=== PATIENT | male | born 1970 | race Two or more races ===

== ENCOUNTER 2021-07-23 16:08 | Emergency (ER) | payer OTHER ==
[~2021-07-23] VITALS: Ht 175.3 cm; Wt 87.1 kg
[2021-07-23] MEDS ORDERED: NORFLEX100MG PO (18:39)
[2021-07-23] MEDS ORDERED: KETO10TA2 PO (18:39)
== END 2021-07-23 19:44 | disposition home or self-care (01) ==
LOC: ER 16:08
DX: M54.50 Low back pain, unspecified (principal); M62.830 Muscle spasm of back

== ENCOUNTER 2021-09-17 21:06 | Emergency (ER) | payer OTHER ==
[~2021-09-17] VITALS: Ht 177.8 cm; Wt 88.9 kg
[~2021-09-17 21:06] MED LIST: KETO10TA2 PO; NORFLEX100MG PO
[2021-09-17] MEDS ORDERED: AVAPRO75 MG (21:17)
== END 2021-09-17 23:25 | disposition home or self-care (01) ==
LOC: ER 21:06
DX: G43.809 Other migraine, not intractable, without status migrainosus (principal)

== ENCOUNTER 2022-07-21 08:32 | Emergency (ER) | payer OTHER ==
[~2022-07-21] VITALS: Ht 175.3 cm; Wt 92.1 kg
[~2022-07-21 08:32] MED LIST changes: +AVAPRO75 MG
[2022-07-21] MEDS ORDERED: TYLENOL ARTHRI650 MG PO (11:22)
[2022-07-21] MEDS ORDERED: CELEBREX200MG PO (11:22)
[2022-07-21] MEDS ORDERED: METAXALONE800 MG PO (11:22)
[2022-07-21] MEDS ORDERED: MEDROLPACK PO (11:22)
== END 2022-07-21 12:43 | disposition home or self-care (01) ==
LOC: ER 08:32
DX: M54.32 Sciatica, left side (principal); I10 Essential (primary) hypertension

== ENCOUNTER 2022-08-05 03:23 | Emergency (ER) | payer OTHER ==
[~2022-08-05] VITALS: Ht 175.3 cm; Wt 90.7 kg
[~2022-08-05 03:23] MED LIST changes: +CELEBREX200MG PO; +MEDROLPACK PO; +METAXALONE800 MG PO; +TYLENOL ARTHRI650 MG PO
[2022-08-05] MEDS ORDERED: AVAPRO75 MG (03:34)
== END 2022-08-05 05:04 | disposition home or self-care (01) ==
LOC: ER 03:23
DX: M54.16 Radiculopathy, lumbar region (principal)

== ENCOUNTER 2022-08-12 16:30 | Inpatient (IN) | payer OTHER ==
[~2022-08-12] VITALS: Ht 175.3 cm; Wt 90.7 kg
--- NOTE | 2022-08-12 16:48 | NUR ---
PTE SE OBSERVA A/O X4. PTE SE RECIBE EN AMBULANCIA. PTE VERBALIZA QUE HOY EVACUO EFRAÍN OSCURA LIQUIDA.
--- NOTE | 2022-08-12 23:42 | NUR ---
PTE ALERTA Y ORIENTADO X3, EN ZULLY EN POSICION SEMI AGUILA. SE ROSINA SV Y SE VERIFICA AREA DE CANALIZACION BETIO DASHA #[id number] PATENTE. PTE CON IV 0.9NSS @150ML/HR Y PROTONIX 80MG/100ML @ 10ML/HR.
--- NOTE | 2022-08-13 04:19 | NUR ---
PTE AL MOMENTO DE IR AL CARLOS REFIERE MAREOS, PTE CON MEDICAMENTO DE MORFINA BAJANDO POR LINEA SECUNDARIA. SE ROSINA SV ESTABLES AL MOMENTO. SE EDUCA A PTE SOBRE NO AMBULAR Y MANTENERSE EN LA ZULLY. SE LE KATARZYNA URINAL. SE MANTIENE BAJO OBSERVACION POR CAMBIOS.
--- NOTE | 2022-08-13 07:44 | NUR ---
SE RECIBE PTE DEL TURNO ANTERIOR, ALERTA Y ORIENTADO EN HUDSON SANDRA ESFERAS, UBICADO EN ZULLY, NIVEL MAS BAJO, LAUREANO DE IDENTIFICACION Y BARANDAS ELEVADAS POR PRECAUCION. SE OBSERVA CON BUEN PATRON RESPIRATORIO. PIEL TIBIA AL TACTO. IV PATENTE Y HARSH DE EDEMA O ERITEMA RECIBIENDO 0.9% NSS @150ML/HR Y DRIP DE PROTONIX 80MG/100ML @10ML/HR. PENDIENTE EVALUACION DE DR NASIR GENTILE (MEDICINA INTERNA). SE MANTIENE BAJO OBSERVACION.
[2022-08-14] MEDS ORDERED: GABAPENTIN600 MG (15:18)
[2022-08-14] MEDS ORDERED: PREGABALIN150 MG (15:18)
[2022-08-16] MEDS ORDERED: IRBESARTAN75 MG PO (14:25)
[2022-08-16] MEDS ORDERED: TAMS0.4C PO (14:25)
[2022-08-16] MEDS ORDERED: PANTOPRAZOLE SO40 MG PO (14:28)
[2022-08-16] MEDS ORDERED: INTEGRA PLUS C1 EACH PO (14:28)
[2022-08-16] MEDS ORDERED: NEURONTIN800 MG PO (14:29)
== END 2022-08-16 15:45 | disposition home or self-care (01) | DRG 379 ==
LOC: ER 16:30 → MEDI 08-13 09:12
PROVIDERS: ADMIT Internal Medicine; ATTEND Internal Medicine
PROC: BW21YZZ Computerized Tomography (CT Scan) of Abdomen and Pelvis using Other Contrast (ICD-10-PCS; 2022-08-13)
PROC: 0DB98ZX Excision of Duodenum, Via Natural or Artificial Opening Endoscopic, Diagnostic (ICD-10-PCS; principal; 2022-08-15)
PROC: 0DB68ZX Excision of Stomach, Via Natural or Artificial Opening Endoscopic, Diagnostic (ICD-10-PCS; 2022-08-15)
PROC: 0DB58ZX Excision of Esophagus, Via Natural or Artificial Opening Endoscopic, Diagnostic (ICD-10-PCS; 2022-08-15)
DX: K92.1 Melena (principal); K29.80 Duodenitis without bleeding; D64.9 Anemia, unspecified; T39.395A Adverse effect of other nonsteroidal anti-inflammatory drugs [NSAID], initial encounter; K25.9 Gastric ulcer, unspecified as acute or chronic, without hemorrhage or perforation; I10 Essential (primary) hypertension; D13.1 Benign neoplasm of stomach; K20.80 Other esophagitis without bleeding; Z20.822 Contact with and (suspected) exposure to COVID-19; M54.16 Radiculopathy, lumbar region

== ENCOUNTER 2023-10-19 15:37 | Emergency (ER) | payer OTHER ==
[~2023-10-19] VITALS: Ht 175.3 cm; Wt 90.7 kg
[~2023-10-19 15:37] MED LIST changes: +GABAPENTIN600 MG; +INTEGRA PLUS C1 EACH PO; +IRBESARTAN75 MG PO; +NEURONTIN800 MG PO; +PANTOPRAZOLE SO40 MG PO; +PREGABALIN150 MG; +TAMS0.4C PO
[2023-10-19] MEDS ORDERED: ORPHENADRINE CITRATE 30 MG/ML AMPUL ONE (16:56)
[2023-10-19] MEDS ORDERED: KETOROLAC TROMETHAMINE 60 MG VIAL IM ONE ×2 (16:56→17:00)
[2023-10-19] MEDS ORDERED: ORPHENADRINE CITRATE 30 MG/ML AMPUL IM ONE (17:00)
[2023-10-19] MEDS ORDERED: KETO10TA2 PO (20:18)
== END 2023-10-19 20:43 | disposition home or self-care (01) ==
LOC: ER 15:38
DX: R20.0 Anesthesia of skin (principal); M54.59 Other low back pain
CPT/HCPCS: 72131; 96372; 99284; J1885; J2360